=== PATIENT | female | born 1995 ===

== ENCOUNTER 2022-10-03 05:20 | Day surgery (SDC) | payer OTHER ==
[2022-10-03] MEDS ORDERED: NAPR500T14 PO (08:24)
[2022-10-03] MEDS ORDERED: MORGIDOX100 MG PO (08:24)
== END 2022-10-03 10:50 | disposition home or self-care (01) ==
LOC: CIR.AMB 05:20
PROVIDERS: ATTEND Obstetrics & Gynecology
DX: N75.1 Abscess of Bartholin's gland (principal); N75.0 Cyst of Bartholin's gland; N91.1 Secondary amenorrhea; I10 Essential (primary) hypertension; Z20.822 Contact with and (suspected) exposure to COVID-19